=== PATIENT | male | born 1970 | race Caucasian/White ===

== ENCOUNTER 2016-10-19 11:39 | Observation (INO) | payer OTHER ==
[~2016-10-19] VITALS: Ht 185.4 cm; Wt 107.5 kg
[~2016-10-19 11:39] MED LIST: CLONAZEPAM0.5 MG PO; ESCITALOPRAM OXA5 MG PO; LISINOPRIL20 MG PO; THERAGRAN1 TABLET PO
[2016-10-19 13:59] LABS: EOSINOPHIL (%) 0 % (0-5); HEMATOCRIT 44.4 % (38.0-50.0); IMMATURE GRANULOCYTE (%) 0.4 % (0.0-0.7); IMMATURE GRANULOCYTE COUNT 0.5 K/uL; LYMPHOCYTE COUNT 1.3 K/uL (1.0-2.8); MCH 33.9 PG (29.0-34.0); MCV 94.1 FL (86-99); MEAN PLAT.VOLUME 8.5 uM^3 (9.0-12.4); MONOCYTE (%) 4.9 % (3-12); MONOCYTE COUNT 0.7 K/uL (0-0.8); NEUTROPHIL (%) 85.2 % (45-76); NEUTROPHIL COUNT 11.9 K/uL (1.8-6.4); PLATELET COUNT 285 K/uL (156-360); RBC DIS.WIDTH-CV 12.6 % (11.8-14.6); RBC DIS.WIDTH-SD 42.4 % (39-53); RED BLOOD COUNT 4.72 M/uL (4.00-5.50)
[2016-10-19 14:18] LABS: CHLORIDE 106 mEq/L (99-109); POTASSIUM 4.2 mEq/L (3.7-5.4); SODIUM 137 mEq/L (136-147)
[2016-10-19 14:20] LABS: GLUCOSE 133 mg/dL (70-99)
[2016-10-19 14:21] LABS: ANION GAP 12 MEQ/L (2-14)
[2016-10-19 14:22] LABS: TOTAL BILIRUBIN 0.4 mg/dL (0.0-1.0)
[2016-10-19 14:23] LABS: ALKALINE PHOSPHATASE 64 IU/L (3-129); GFR ESTIMATE (CALCULATED) > 59 mL/min/
[2016-10-19 14:25] LABS: UREA NITROGEN (BUN) 19 mg/dL (9-23)
[2016-10-19] MEDS ORDERED: PREDNISONE50 MG PO (14:55)
[2016-10-19] MEDS ORDERED: ZANTAC150 MG PO (14:55)
[2016-10-19] MEDS ORDERED: ATARAX,VISTARIL25 MG PO (14:55)
[2016-10-19] MEDS ORDERED: MEDROL DOSEPAK4 MG PO (17:44)
[2016-10-19] MEDS ORDERED: ACID REDUCER150 MG PO (17:44)
[2016-10-19] MEDS ORDERED: ASPIR 8181 M1 PO (17:45)
[2016-10-19] MEDS ORDERED: PRINZIDE 20-121 EACH PO (17:45)
[2016-10-19] MEDS ORDERED: ELAVIL25 MG PO (17:45)
[2016-10-19 22:25] VITALS: BP 125/73
[2016-10-19 22:26] LABS: ADD MIUA? NO; BILIRUBIN NEGATIVE; BLOOD NEGATIVE; COLOR YELLOW ((YELLOW)); GLUCOSE (STRIP) NEGATIVE; KETONES NEGATIVE; LEUKOCYTES NEGATIVE; NITRITE NEGATIVE; PROTEIN (STRIP) NEGATIVE; SPECIFIC GRAVITY 1.006 (1.000-1.030); UCUL ADDED? NO; UROBILINOGEN 0.2 MG/DL (0.2-1.0)
[2016-10-20 04:38] VITALS: BP 112/58
[2016-10-20 06:20] LABS: HEMATOCRIT 41.8 % (38.0-50.0); MCH 33.3 PG (29.0-34.0); MCHC 33.3 G/DL (30.0-36.0); MEAN PLAT.VOLUME 9.3 uM^3 (9.0-12.4); PLATELET COUNT 256 K/uL (156-360); RBC DIS.WIDTH-CV 13.1 % (11.8-14.6); RBC DIS.WIDTH-SD 47.8 % (39-53); RED BLOOD COUNT 4.17 M/uL (4.00-5.50); WHITE BLOOD COUNT 10.6 K/uL (4.1-10.2)
[2016-10-20 06:23] LABS: MCV 100.2 FL (86-99)
[2016-10-20 06:41] LABS: ANION GAP 11 MEQ/L (2-14); CHLORIDE 106 MEQ/L (99-109); GFR ESTIMATE (CALCULATED) > 59 mL/min/; GLUCOSE 151 mg/dL (70-99); POTASSIUM 4.2 MEQ/L (3.7-5.4); SAMPLE HEMOLYSIS CHECK 0; SAMPLE ICTERIC CHECK 0; SAMPLE LIPEMIA CHECK 0; SODIUM 140 MEQ/L (136-147); UREA NITROGEN (BUN) 19 mg/dL (9-23)
[2016-10-20 07:47] VITALS: BP 110/60
[2016-10-20] MEDS ORDERED: PREDNISONE10 MG PO (08:53)
== END 2016-10-20 09:31 | disposition home or self-care (01) ==
LOC: EME 11:39 → 5WEST 21:22 → EDOF 21:22 → 5WEST 22:23
PROVIDERS: Emergency Medicine; Hospitalist
DX: T78.3XXA Angioneurotic edema, initial encounter (principal); T46.4X5A Adverse effect of angiotensin-converting-enzyme inhibitors, initial encounter; I10 Essential (primary) hypertension; K21.9 Gastro-esophageal reflux disease without esophagitis; Z82.49 Family history of ischemic heart disease and other diseases of the circulatory system
CPT/HCPCS: 80048; 80053; 81003; 85025; 85027; 99281; 99285; G0378; J1100; J1200; J1650; J7030; J7120; J7512; S0028

== ENCOUNTER → 2018-02-04 | Outpatient (CLI) | payer OTHER ==
[~2018-02-04] MED LIST changes: +ACID REDUCER150 MG PO; +ASPIR 8181 M1 PO; +ATARAX,VISTARIL25 MG PO; +BISOPROLOL FUMAR5 MG PO; +BUSPAR7.5 MG PO; +DIOVAN160 MG PO; +ELAVIL25 MG PO; +HYDROCHLOROTHIA25 MG PO; +LEXAPRO5 MG PO; +LUNESTA1 MG PO; +MEDROL DOSEPAK4 MG PO; +NORVASC10 MG PO; +PREDNISONE10 MG PO; +PREDNISONE50 MG PO; +PRINZIDE 20-121 EACH PO; +ZANTAC150 MG PO
== END | disposition home or self-care (01) ==
LOC: EKG 14:37
DX: Z01.810 Encounter for preprocedural cardiovascular examination (principal); R35.8 Other polyuria; M25.561 Pain in right knee; S80.01XA Contusion of right knee, initial encounter; R00.1 Bradycardia, unspecified
CPT/HCPCS: 93005

== ENCOUNTER 2018-02-08 07:35 | Day surgery (SDC) | payer OTHER ==
[~2018-02-08] VITALS: Ht 184.2 cm; Wt 108.9 kg
[2018-02-08 08:30] VITALS: BP 119/70
[2018-02-08 13:39] VITALS: BP 128/71
[2018-02-08 14:45] VITALS: BP 98/54
== END 2018-02-08 14:48 | disposition home or self-care (01) ==
LOC: SDC
DX: S83.511A Sprain of anterior cruciate ligament of right knee, initial encounter (principal); X50.3XXA Overexertion from repetitive movements, initial encounter; Y93.53 Activity, golf; Y92.39 Other specified sports and athletic area as the place of occurrence of the external cause; I10 Essential (primary) hypertension; G47.33 Obstructive sleep apnea (adult) (pediatric); R00.1 Bradycardia, unspecified; Z87.891 Personal history of nicotine dependence; Z79.82 Long term (current) use of aspirin
CPT/HCPCS: C1713; J0690; J1100; J1170; J1885; J2250; J2405; J2795